=== PATIENT | female | born 1990 | race African-American/Black ===

== ENCOUNTER → 2017-01-27 | Outpatient (CLI) | payer OTHER, MEDICARE, BC, MEDICAID ==
[~2017-01-27] MED LIST: ATARAX 25MG25 MG/TAB PO; ATIVAN 0.50.5 MG/TAB PO; BEANO1 TAB PO; CIPRO 250MG TA250 MG PEG; CLEOCIN HCL300 MG PO; CLOBAZAM PO; COLACE 100100 MG/CAP PEG; DDAVP; DDAVP0.1 MG PO; DEPO-PROVER150 MG/M1 IM; DILANTIN 100MG100 MG PO; DILANTIN O100 MG/4 M PEG; DILANTIN O100 MG/4 M PO; DULCOLAX S10 MG/SUPP RC; EPSOM SALT TOP; FORTICAL200 IU/ACT NS; KEPPRA SUSP100 MG/ML PEG; KEPPRA1000 MG PEG; KRISTALOSE10 GM/PACK PO; LAMICTAL; LAMICTAL 100MG100 MG PO; LAMICTAL 25MG T25 MG PO; LAMICTAL ODT50 MG PEG; LAMICTAL150 MG PO; LAMICTAL200 MG PO; LAMICTAL25 MG PO; LEXAPRO 10MG10 MG PO; LIORESAL20 MG PO; MAGIMIN-FORTE250 MG PO; MIRALAX 17GM PK1 PKT PO; MIRALAX PA17 GM/Dose PEG; MIRALAX PA17 GM/Dose PO; MIRALAX17 GM/DOSE PO; MULTIPLE VITAMI1 CAP PO; MULTIVITAMIN W/1 TA1 PEG; OMEGA 3 120 MG-1 CAP PO; PERI-COLACE 501 TAB PO; PREDNISONE20 MG PO; SALINE NASAL SP45 ML NS; SEPTRA DS 8001 TAB PO; SEROQUEL 2525 MG/TAB PO; SUPER EPA-3001000 MG PO; TAB-A-VITE W/IR1 TAB PO; TRILEPTAL150 MG PO; TRILEPTAL300 MG/5 M PO; UNABLE; VICKS VAPORUB 41 OIN TP; VIMPAT200 MG PEG; VITAMIN C500 MG PO; VITAMIN D31000 IU PO; WATER PEG; [UNRECOGNIZED DRUG - CODE] NS
== END ==
LOC: COL.RAD 09:27
DX: G80.1 Spastic diplegic cerebral palsy (principal); G40.909 Epilepsy, unspecified, not intractable, without status epilepticus; F59 Unspecified behavioral syndromes associated with physiological disturbances and physical factors; R45.4 Irritability and anger; R63.4 Abnormal weight loss
CPT/HCPCS: Q9967

== ENCOUNTER → 2017-02-02 | Outpatient (CLI) | payer OTHER, BC, MEDICARE, MEDICAID | LOC: COL.RAD 13:30 | DX: K59.00 Constipation, unspecified (principal) ==

== ENCOUNTER → 2017-02-09 | Outpatient (CLI) | payer OTHER, BC, MEDICARE, MEDICAID | LOC: COL.RAD 09:58 | DX: K59.00 Constipation, unspecified (principal); R14.0 Abdominal distension (gaseous) ==

== ENCOUNTER → 2017-02-18 | Outpatient (CLI) | payer OTHER | LOC: COL.RAD 11:00 | DX: K56.60 Unspecified intestinal obstruction (principal) ==

== ENCOUNTER 2017-02-23 14:49 | Observation (INO) | payer OTHER, BC, MEDICAID ==
[~2017-02-23 14:49] MED LIST changes: -ATARAX 25MG25 MG/TAB PO; -FORTICAL200 IU/ACT NS; -KRISTALOSE10 GM/PACK PO; -LEXAPRO 10MG10 MG PO; -LIORESAL20 MG PO; -PERI-COLACE 501 TAB PO; -SEROQUEL 2525 MG/TAB PO; -TAB-A-VITE W/IR1 TAB PO; -VITAMIN D31000 IU PO
[2017-02-23] MEDS ORDERED: TAB-A-VITE W/IR1 TAB PO (15:22)
[2017-02-23] MEDS ORDERED: LEXAPRO 10MG10 MG PO (15:23)
[2017-02-23] MEDS ORDERED: LIORESAL20 MG PO (15:23)
[2017-02-23] MEDS ORDERED: FORTICAL200 IU/ACT NS (15:23)
[2017-02-23] MEDS ORDERED: VITAMIN D31000 IU PO (15:24)
[2017-02-23] MEDS ORDERED: SEROQUEL 2525 MG/TAB PO (15:24)
[2017-02-23] MEDS ORDERED: ATARAX 25MG25 MG/TAB PO (15:24)
[2017-02-23 16:21] LABS: BASO # 0.1 (0.0-0.2); BASO % 1.2 % (0.0-2.0); EOS # 1.1 (0.0-0.7); EOS % 15.2 % (0-4.0); GRAN % 40.4 % (42.2-75.2); HEMATOCRIT 40.5 % (37.0-47.0); HEMOGLOBIN 13.6 g/dl (12.5-16.0); LYMPH # 2.5 (1.2-3.4); LYMPH % 33.2 % (20.0-51.0); MEAN CELL VOLUME 97 fl (80.0-100.0); MEAN CORPUSCULAR HEMOGLOBIN 33 pg (27.0-31.0); MEAN CORPUSCULAR HGB CONC 34 g/dl (33.0-37.0); MEAN PLATELET VOLUME 9.7 fl (7.4-10.4); MONO # 0.7 (0.1-0.6); MONO % 9.9 % (1.7-9.3); PLATELET COUNT 229 K/mm3 (130-400); RED BLOOD COUNT 4.18 M/mm3 (4.10-5.30); REDCELL DISTRIBUTION WIDTH-CV 12.1 % (11.5-14.5); WHITE BLOOD COUNT 7.5 K/mm3 (4.8-10.8)
[2017-02-23 16:31] LABS: ADJUSTED CALCIUM 8.8 mg/dL (8.4-10.2); ALBUMIN 4.4 gm/dL (3.5-5.0); BILIRUBIN,TOTAL 0.3 mg/dL (0.0-1.0); CALCIUM 9.1 mg/dL (8.4-10.2); CREATININE, serum 0.64 mg/dL (0.52-1.25); MAGNESIUM 2.4 mg/dL (1.6-2.3); POTASSIUM 4.4 mmol/L (3.4-5.0); TOTAL PROTEIN 7.7 gm/dL (6.4-8.2)
[2017-02-23 18:22] LABS: PH 6 (5-8); SQUAMOUS EPITHELIAL None Seen /hpf; URINE APPEARANCE Hazy; URINE BACTERIA None Seen /hpf; URINE BILIRUBIN Negative (NEGATIVE); URINE BLOOD Negative (NEGATIVE); URINE COLOR Yellow; URINE GLUCOSE Negative (NEGATIVE); URINE KETONE Negative (NEGATIVE); URINE RBC 0-2 /hpf; URINE UROBILINOGEN Negative (NEGATIVE); URINE WBC 0-2 /hpf
[2017-02-23 18:38] VITALS: BP 142/86; PULSE 96
[2017-02-24 04:00] VITALS: BP 153/84; PULSE 138; TEMP 98.3
[2017-02-24 06:50] VITALS: BP 118/78
[2017-02-24 07:24] LABS: BASO # 0.1 (0.0-0.2); BASO % 1.1 % (0.0-2.0); EOS # 1.1 (0.0-0.7); EOS % 15.8 % (0-4.0); GRAN # 2.9 (1.4-6.5); GRAN % 41.3 % (42.2-75.2); HEMOGLOBIN 13.9 g/dl (12.5-16.0); LYMPH # 2.4 (1.2-3.4); LYMPH % 34.5 % (20.0-51.0); MEAN CELL VOLUME 97 fl (80.0-100.0); MEAN CORPUSCULAR HEMOGLOBIN 32 pg (27.0-31.0); MEAN CORPUSCULAR HGB CONC 33 g/dl (33.0-37.0); MONO # 0.5 (0.1-0.6); PLATELET COUNT 241 K/mm3 (130-400); RED BLOOD COUNT 4.31 M/mm3 (4.10-5.30)
[2017-02-24 07:38] LABS: ADJUSTED CALCIUM 8.9 mg/dL (8.4-10.2); BILIRUBIN,TOTAL 0.5 mg/dL (0.0-1.0); CALCIUM 8.9 mg/dL (8.4-10.2); CREATININE, serum 0.53 mg/dL (0.52-1.25); MAGNESIUM 2.2 mg/dL (1.6-2.3); POTASSIUM 3.9 mmol/L (3.4-5.0); TOTAL PROTEIN 7.2 gm/dL (6.4-8.2)
[2017-02-24 11:17] VITALS: BP 90/53; PULSE 111; TEMP 97.8
[2017-02-24 16:00] VITALS: BP 153/84; PULSE 138; TEMP 98.3
[2017-02-24 18:05] VITALS: BP 153/84; PULSE 138; TEMP 98.3
[2017-02-24 20:25] VITALS: BP 132/109
[2017-02-25] MEDS ORDERED: PERI-COLACE 501 TAB PO (10:38)
[2017-02-25] MEDS ORDERED: KRISTALOSE10 GM/PACK PO (10:40)
== END 2017-02-25 13:10 | disposition home or self-care (01) ==
LOC: MEDICAL 14:49
PROVIDERS: Physician Assistant
DX: K56.7 Ileus, unspecified (principal); G80.0 Spastic quadriplegic cerebral palsy; F79 Unspecified intellectual disabilities; Q02 Microcephaly; F91.9 Conduct disorder, unspecified; L89.521 Pressure ulcer of left ankle, stage 1; G40.909 Epilepsy, unspecified, not intractable, without status epilepticus
CPT/HCPCS: 99223-AI; G0378; G0379; J1650

== ENCOUNTER → 2017-05-25 | Outpatient (CLI) | payer BC, MEDICARE, MEDICAID ==
[~2017-05-25] MED LIST changes: +ATARAX 25MG25 MG/TAB PO; +FORTICAL200 IU/ACT NS; +KRISTALOSE10 GM/PACK PO; +LEXAPRO 10MG10 MG PO; +LIORESAL20 MG PO; +PERI-COLACE 501 TAB PO; +SEROQUEL 2525 MG/TAB PO; +TAB-A-VITE W/IR1 TAB PO; +VITAMIN D31000 IU PO
== END ==
LOC: COL.RAD 09:57
DX: K59.00 Constipation, unspecified (principal)

== ENCOUNTER → 2017-09-11 | Outpatient (CLI) | payer MEDICARE, BC, MEDICAID | LOC: COL.VAS 12:20 | DX: M79.604 Pain in right leg (principal); R20.9 Unspecified disturbances of skin sensation ==

== ENCOUNTER 2017-10-02 09:20 | Emergency (ER) | payer MEDICARE, BC, MEDICAID ==
[~2017-10-02] VITALS: Wt 50.9 kg
[2017-10-02 10:36] LABS: HEMATOCRIT 41.4 % (37.0-47.0); HEMOGLOBIN 14.1 g/dl (12.5-16.0); MEAN CELL VOLUME 95 fl (80.0-100.0); MEAN CORPUSCULAR HEMOGLOBIN 33 pg (27.0-31.0); MEAN CORPUSCULAR HGB CONC 34 g/dl (33.0-37.0); PLATELET COUNT 191 K/mm3 (130-400); RED BLOOD COUNT 4.34 M/mm3 (4.10-5.30); REDCELL DISTRIBUTION WIDTH-CV 12.1 % (11.5-14.5)
[2017-10-02 10:45] LABS: BILIRUBIN,TOTAL 0.4 mg/dL (0.0-1.0); C-REACTIVE PROTEIN 3.4 mg/dL (0.0-0.9); CALCIUM 8.5 mg/dL (8.4-10.2); CREATININE, serum 0.53 mg/dL (0.52-1.25); POTASSIUM 4.1 mmol/L (3.4-5.0); TOTAL PROTEIN 7.1 gm/dL (6.4-8.2)
[2017-10-02 10:59] LABS: PROLACTIN 12.3 ng/mL (3.0-18.6)
[2017-10-02 11:12] LABS: COLLECTION METHOD CATHETER
[2017-10-02 11:23] LABS: PHENYTOIN (DILANTIN) 7.8 ug/mL (10.0-20.0)
[2017-10-02 11:29] LABS: MUCOUS Present /lpf; PH 7 (5-8); URINE APPEARANCE Cloudy; URINE BACTERIA Rare /hpf; URINE BILIRUBIN Negative (NEGATIVE); URINE BLOOD Negative (NEGATIVE); URINE COLOR Yellow; URINE GLUCOSE Negative (NEGATIVE); URINE KETONE Negative (NEGATIVE); URINE LEUKOCYTE ESTERASE Negative (NEGATIVE); URINE NITRATE Negative (NEGATIVE); URINE PROTEIN(semi-quant) 1+ (NEGATIVE); URINE UROBILINOGEN Negative (NEGATIVE)
[2017-10-02] MEDS ORDERED: RISPERDAL 0.20.25 MG PO (11:51)
[2017-10-02 12:07] LABS: BAND 13 % (0-10); LYMPHOCYTE 4 % (20.0-51.0); NEUTROPHILS 80 % (42.0-75.2)
[2017-10-02 12:08] LABS: PLATELET ESTIMATE NORMAL (NORMAL); STOMATOCYTE 1+
[2017-10-02 14:10] VITALS: BP 91/72; PULSE 115; TEMP 99
== END 2017-10-02 14:02 | disposition home or self-care (01) ==
LOC: COL.ER 09:20
PROVIDERS: Emergency Medicine
DX: G40.909 Epilepsy, unspecified, not intractable, without status epilepticus (principal); R89.2 Abnormal level of other drugs, medicaments and biological substances in specimens from other organs, systems and tissues
CPT/HCPCS: J2060; J2405; J7030; Q2009

== ENCOUNTER 2018-12-16 10:04 | Emergency (ER) | payer MEDICARE, BC, MEDICAID ==
[~2018-12-16] VITALS: Ht 165.1 cm; Wt 59.1 kg
[~2018-12-16 10:04] MED LIST changes: +RISPERDAL 0.20.25 MG PO
[2018-12-16 10:26] VITALS: BP 113/68
[2018-12-16 12:45] VITALS: PULSE 67; TEMP 96.7
== END 2018-12-16 12:45 | disposition home or self-care (01) ==
LOC: COL.ER 10:04
DX: S30.0XXA Contusion of lower back and pelvis, initial encounter (principal); G40.909 Epilepsy, unspecified, not intractable, without status epilepticus; W17.89XA Other fall from one level to another, initial encounter; Y92.129 Unspecified place in nursing home as the place of occurrence of the external cause

== ENCOUNTER → 2020-10-12 | Outpatient (CLI) | payer BC, MEDICARE, MEDICAID ==
[~2020-10-12] MED LIST changes: +COLACE 100100 MG/CAP PO; +ENULOSE10 GM/15 M PO
== END ==
LOC: COL.RAD 09:42
DX: R13.12 Dysphagia, oropharyngeal phase (principal); R60.0 Localized edema; R05 Cough

== ENCOUNTER 2020-10-30 16:48 | Emergency (ER) | payer BC, MEDICARE, MEDICAID ==
[~2020-10-30] VITALS: Ht 160 cm; Wt 45.5 kg
[~2020-10-30 16:48] MED LIST changes: -COLACE 100100 MG/CAP PO; -ENULOSE10 GM/15 M PO
[2020-10-30 17:04] VITALS: TEMP 97.3
[2020-10-30 17:47] LABS: HEMATOCRIT 42.1 % (37.0-47.0); HEMOGLOBIN 14.2 g/dl (12.5-16.0); MEAN CELL VOLUME 95 fl (80.0-100.0); MEAN CORPUSCULAR HEMOGLOBIN 32 pg (27.0-31.0); MEAN CORPUSCULAR HGB CONC 34 g/dl (33.0-37.0); PLATELET COUNT 166 K/mm3 (130-400); RED BLOOD COUNT 4.43 M/mm3 (4.10-5.30); REDCELL DISTRIBUTION WIDTH-CV 15.1 % (11.5-14.5)
[2020-10-30 18:01] LABS: ALBUMIN 3.9 gm/dL (3.5-5.0); BILIRUBIN,TOTAL 0.4 mg/dL (0.0-1.0); CREATININE, serum 0.59 (0.52-1.25); PHENYTOIN (DILANTIN) 10.1 ug/mL (10.0-20.0); POTASSIUM 3.9 mmol/L (3.4-5.0); TOTAL PROTEIN 7.9 gm/dL (6.4-8.2)
[2020-10-30 18:21] LABS: BAND 17 % (0-10); LYMPHOCYTE 6 % (20.0-51.0); NEUTROPHILS 74 % (42.0-75.2)
[2020-10-30 18:22] LABS: ANISOCYTOSIS 1+; PLATELET ESTIMATE NORMAL (NORMAL)
[2020-10-30 18:51] LABS: COLLECTION METHOD CATHETER
[2020-10-30] MEDS ORDERED: COLACE 100100 MG/CAP PO (18:57)
[2020-10-30 19:00] LABS: AMORPHOUS CRYSTAL Present /uL; MUCOUS Present /lpf; PH 7 (5-8); SQUAMOUS EPITHELIAL None Seen /hpf; URINE APPEARANCE Cloudy; URINE BACTERIA None Seen /hpf; URINE BILIRUBIN Negative (NEGATIVE); URINE BLOOD Negative (NEGATIVE); URINE COLOR Yellow; URINE GLUCOSE Negative (NEGATIVE); URINE KETONE Negative (NEGATIVE); URINE LEUKOCYTE ESTERASE Negative (NEGATIVE); URINE NITRATE Negative (NEGATIVE); URINE PROTEIN(semi-quant) Negative (NEGATIVE); URINE UROBILINOGEN Negative (NEGATIVE)
[2020-10-30] MEDS ORDERED: ENULOSE10 GM/15 M PO (19:01)
[2020-10-30 19:35] VITALS: BP 105/71; PULSE 87
== END 2020-10-30 19:35 | disposition home or self-care (01) ==
LOC: COL.ER 16:48
PROVIDERS: Physician Assistant
DX: K59.00 Constipation, unspecified (principal); G40.909 Epilepsy, unspecified, not intractable, without status epilepticus; R41.82 Altered mental status, unspecified; Z91.19 Patient's noncompliance with other medical treatment and regimen; Z88.6 Allergy status to analgesic agent
CPT/HCPCS: Q9967

== ENCOUNTER → 2020-11-06 | Outpatient (CLI) | payer BC, MEDICARE, MEDICAID ==
[~2020-11-06] MED LIST changes: +COLACE 100100 MG/CAP PO; +ENULOSE10 GM/15 M PO
== END ==
LOC: COL.RAD 13:00
DX: J84.9 Interstitial pulmonary disease, unspecified (principal); M41.84 Other forms of scoliosis, thoracic region; M43.8X4 Other specified deforming dorsopathies, thoracic region
CPT/HCPCS: Q9967

== ENCOUNTER → 2020-11-16 | Outpatient (CLI) | payer BC, MEDICARE, MEDICAID | LOC: COL.RAD 09:21 | DX: K80.20 Calculus of gallbladder without cholecystitis without obstruction (principal) ==

== ENCOUNTER 2020-11-26 06:36 | Inpatient (IN) | payer BC, MEDICARE, MEDICAID ==
[2020-11-26] VITALS (572 sets, daily range): BP systolic 68–115; BP diastolic 44–72; PULSE 65–100; TEMP 97–98.1; O2SAT 90–100
[~2020-11-26] VITALS: Ht 170.2 cm; Wt 73.9 kg
[2020-11-26 07:03] LABS: HEMOGLOBIN 15.2 g/dl (12.5-16.0); MEAN CELL VOLUME 98 fl (80.0-100.0); MEAN CORPUSCULAR HEMOGLOBIN 32 pg (27.0-31.0); MEAN CORPUSCULAR HGB CONC 33 g/dl (33.0-37.0); PLATELET COUNT 132 K/mm3 (130-400); RED BLOOD COUNT 4.69 M/mm3 (4.10-5.30); REDCELL DISTRIBUTION WIDTH-CV 16.4 % (11.5-14.5)
[2020-11-26 07:09] LABS: ALANINE AMINOTRANSFERASE 79 U/L (4-34); ALBUMIN 4.5 gm/dL (3.5-5.0); ALKALINE PHOSPHATASE 183 U/L (50-136); ANION GAP 17 mmol/L (7-16); AST,SGOT 83 U/L (15-37); BILIRUBIN,TOTAL < 0.1 mg/dL (0.0-1.0); BLOOD UREA NITROGEN 21 mg/dL (7-17); CALCIUM 10.2 mg/dL (8.4-10.2); CARBON DIOXIDE 24 mmol/L (22-30); CHLORIDE 107 mmol/L (98-107); CREATININE, serum 0.98 (0.52-1.25); GLUCOSE 77 mg/dL (74-106); POTASSIUM 3.9 mmol/L (3.4-5.0); SODIUM 148 mmol/L (137-145); TOTAL PROTEIN 9.3 gm/dL (6.4-8.2)
[2020-11-26 07:27] LABS: COLLECTION METHOD CATHETER
[2020-11-26 07:34] LABS: MUCOUS Present /lpf; PH 5 (5-8); SQUAMOUS EPITHELIAL 0-2 /hpf; URINE APPEARANCE Cloudy; URINE BACTERIA None Seen /hpf; URINE BILIRUBIN Negative (NEGATIVE); URINE BLOOD 2+ (NEGATIVE); URINE COLOR Yellow; URINE GLUCOSE Negative (NEGATIVE); URINE KETONE Trace (NEGATIVE); URINE LEUKOCYTE ESTERASE Negative (NEGATIVE); URINE NITRATE Negative (NEGATIVE); URINE PROTEIN(semi-quant) 1+ (NEGATIVE); URINE RBC >50 /hpf; URINE UROBILINOGEN Negative (NEGATIVE)
[2020-11-26 07:34] LABS: ANISOCYTOSIS 1+; BAND 35 % (0-10); LYMPHOCYTE 2 % (20.0-51.0); NEUTROPHILS 57 % (42.0-75.2); PLATELET ESTIMATE NORMAL (NORMAL)
[2020-11-26] MEDS ORDERED: MIRALAX PA17 GM/Dose PO (08:41)
--- NOTE | 2020-11-26 10:00 | NUR ---
Pt unable to answer Suicide questions
--- NOTE | 2020-11-26 10:18 | NUR ---
Pt choking on vomit upon entering room, pt turned on side, oral suctioning performed. MD Kayleen outside room and notified: pts increased labored breathing with periods of apnea and hypoxia - MD in room right away O2 increased to 10L/min while oxymask acquired - farrowing manager Carmela De Guzman,RT and housekeeper and laundry assistant notifed of pts respiratory status. MD Kayleen wishes to intubate and mechanically ventilate pt - MD Kayleen obtained consent for intubation and radial arterial line insertion. Anesthesia paged and at bedside within 5min
--- NOTE | 2020-11-26 11:16 | NUR ---
The patient is intubated. The patient is a client from [facility]. ASYA contacted Denisse from [facility] to inquire about advanced directives. Denisse reports that the patient has a letter of guardianship and conservatorship. Denisse faxed the letter and it was placed in the chart. The letter designates the patient's parents, Edwar and Favian Mercado. ASYA staffed with housekeeping and laundry team leader and she states the patient's mother, Favian is on her way from [place], [place].
[2020-11-26 11:31] LABS: ARTERIAL BLD GAS O2 SATURATION 98.3 % (92-100); ARTERIAL BLD GAS TCO2 CT 21.5; ARTERIAL BLOOD GAS BASE EXCESS -4.1 (-2-2); ARTERIAL BLOOD GAS HCO3 20.4 meq/L (22-26); ARTERIAL BLOOD GAS PCO2 35.4 mmHg (35-45); ARTERIAL BLOOD GAS pH 7.38 (7.35-7.45)
[2020-11-26 11:32] LABS: ARTERIAL BLOOD GAS PO2 132.5 mmHg (80-100)
--- NOTE | 2020-11-26 12:47 | NUR ---
First visit from the air reduction equipment operator. [place] Machine Operator talked with person who was with patient. No needs right now.
--- NOTE | 2020-11-26 13:32 | NUR ---
Vancomycin Initial Dosing Pharmacy Note Ordering provider: Roxann Beyer MD Indication/duration: PNA, 7 days Relevant comorbidities: h/o aspiration pna LABS: SCr 0.98, CrCl~71, GFR 66, WBC 18.1 Recommendation: Start Vancomcyin 1.25 gm IV x1 loading dose, then Vancomycin 1 gm IV q12h. Pharmacy will continue to closely monitor and check Vancomycin trough on 11/28/20. Loading dose: 1.25 grams Maintenance dose: 1 gram every 12 hours Trough goal: 15-20 ug/mL
--- NOTE | 2020-11-26 14:50 | NUR ---
1033: Staff present: Myself, MICHAEL De Guzman, CarmelaRT, MD Kayleen and ANASTASIYA Hernandez present. Timeout completed, all in agreement Refer to ansesthesia note for induction med administration. (1034:MD Regan and MD Vickey notified of events) Airway inserted at 1036 - color change observed - secured and noted to be 21cm at the teeth - breath sounds auscultated in all lobes at 1037 1040: MICHAEL Pires notified for PICC insertion 1043:OG tube inserted - 58cm at teeth 1230: PICC placement confirmed and now being used
--- NOTE | 2020-11-26 17:53 | NUR ---
No sedation vacation required per MD Vickey d/t recent seizure activity
[2020-11-26 20:02] LABS: ARTERIAL BLD GAS O2 SATURATION 98.4 % (92-100); ARTERIAL BLD GAS TCO2 CT 19.6; ARTERIAL BLOOD GAS BASE EXCESS -3.9 (-2-2); ARTERIAL BLOOD GAS HCO3 18.8 meq/L (22-26); ARTERIAL BLOOD GAS PCO2 27.3 mmHg (35-45); ARTERIAL BLOOD GAS pH 7.46 (7.35-7.45)
[2020-11-26 20:03] LABS: ARTERIAL BLOOD GAS PO2 131.3 mmHg (80-100)
[2020-11-26 20:49] LABS: CALCIUM 8.1 mg/dL (8.4-10.2); CREATININE, serum 0.66 (0.52-1.25); MAGNESIUM 1.9 mg/dL (1.6-2.3); PHOSPHOROUS 2.3 mg/dL (2.5-4.5); POTASSIUM 3.6 mmol/L (3.4-5.0)
--- NOTE | 2020-11-26 21:50 | NUR ---
Report received from Phillip RODRIGUEZ. Patient is vented and sedated. Vent settings are AC, Rate 16, TV 450, Peep of 5 at 40%. Sedation is fentanyl: 100; Propofol: 30. Patient is tolerating the vent well. Blood pressures are 103/51 at Levophed at 0.20.
[2020-11-27] VITALS (794 sets, daily range): BP systolic 90–138; BP diastolic 48–78; PULSE 46–69; TEMP 95.3–98.8; O2SAT 76–100
[2020-11-27 05:47] LABS: MEAN CELL VOLUME 97 fl (80.0-100.0); MEAN CORPUSCULAR HGB CONC 34 g/dl (33.0-37.0); MEAN PLATELET VOLUME 12.7 fl (7.4-10.4); PLATELET COUNT 105 K/mm3 (130-400); RED BLOOD COUNT 3.73 M/mm3 (4.10-5.30); REDCELL DISTRIBUTION WIDTH-CV 16.1 % (11.5-14.5)
[2020-11-27 05:49] LABS: HEMATOCRIT 36.2 % (37.0-47.0); HEMOGLOBIN 12.2 g/dl (12.5-16.0); MEAN CORPUSCULAR HEMOGLOBIN 33 pg (27.0-31.0)
[2020-11-27 06:00] LABS: BILIRUBIN,TOTAL 0.2 mg/dL (0.0-1.0); CALCIUM 8.7 mg/dL (8.4-10.2); CREATININE, serum 0.65 (0.52-1.25); MAGNESIUM 1.9 mg/dL (1.6-2.3); PHOSPHOROUS 2.5 mg/dL (2.5-4.5); POTASSIUM 3.3 mmol/L (3.4-5.0); TOTAL PROTEIN 6.2 gm/dL (6.4-8.2)
[2020-11-27 06:04] LABS: BAND 22 % (0-10); EOSINOPHIL 1 % (0-4); LYMPHOCYTE 25 % (20.0-51.0); NEUTROPHILS 51 % (42.0-75.2)
[2020-11-27 06:06] LABS: PLATELET ESTIMATE DECREASED (NORMAL)
[2020-11-27 06:06] LABS: ARTERIAL BLD GAS O2 SATURATION 98.8 % (92-100); ARTERIAL BLD GAS TCO2 CT 21.8; ARTERIAL BLOOD GAS BASE EXCESS -0.3 (-2-2); ARTERIAL BLOOD GAS PCO2 25.7 mmHg (35-45); ARTERIAL BLOOD GAS PO2 150.4 mmHg (80-100); ARTERIAL BLOOD GAS pH 7.53 (7.35-7.45)
[2020-11-27 06:07] LABS: ANISOCYTOSIS 1+
--- NOTE | 2020-11-27 06:12 | NUR ---
PT HAS NOT BEEN INTUBATED FOR MORE THAN 24 HOURS. PT IS ON DOCUMENTED SETTINGS OSBALDO WELL WITH NO DISTRESS NOTED AT THIS TIME
--- NOTE | 2020-11-27 07:49 | NUR ---
Decreased sedation levels per Dr. Hurd's verbal orders due to bradycardia.
--- NOTE | 2020-11-27 11:00 | NUR ---
Hospitalist notfied of patient's rectal temp of 95.3. Warm blankets placed and room temperature increased. Will see if these interventions help, of not a bear hugger can be placed.
[2020-11-27 11:06] LABS: ARTERIAL BLD GAS O2 SATURATION 98.1 % (92-100); ARTERIAL BLOOD GAS BASE EXCESS -5.9 (-2-2); ARTERIAL BLOOD GAS HCO3 17.2 meq/L (22-26); ARTERIAL BLOOD GAS PCO2 26.5 mmHg (35-45); ARTERIAL BLOOD GAS PO2 119.4 mmHg (80-100); ARTERIAL BLOOD GAS pH 7.43 (7.35-7.45)
--- NOTE | 2020-11-27 12:10 | NUR ---
Notified Dr Spears of dilanton levels. Ok to give IV phosphenytoin. Also notified Dr. Spears that head CT was performed without contrast; ok with no contrast CT at this time.
--- NOTE | 2020-11-27 18:00 | NUR ---
Updated family members multiple times throughout the shift; all questions and concerns addressed.
[2020-11-28] VITALS (586 sets, daily range): BP systolic 94–119; BP diastolic 49–61; PULSE 62–78; TEMP 97.8–98.5; O2SAT 89–100
[2020-11-28 06:12] LABS: ARTERIAL BLD GAS O2 SATURATION 98.4 % (92-100); ARTERIAL BLD GAS TCO2 CT 23.1; ARTERIAL BLOOD GAS BASE EXCESS -1.7 (-2-2); ARTERIAL BLOOD GAS HCO3 22.1 meq/L (22-26); ARTERIAL BLOOD GAS PCO2 33.5 mmHg (35-45); ARTERIAL BLOOD GAS PO2 116.4 mmHg (80-100); ARTERIAL BLOOD GAS pH 7.44 (7.35-7.45)
[2020-11-28 06:26] LABS: BASO % 0.4 % (0.0-2.0); EOS # 0.2 (0.0-0.7); EOS % 2.7 % (0-4.0); GRAN # 5.1 (1.4-6.5); GRAN % 63.4 % (42.2-75.2); LYMPH # 1.9 (1.2-3.4); LYMPH % 23.5 % (20.0-51.0); MEAN CELL VOLUME 96 fl (80.0-100.0); MEAN CORPUSCULAR HGB CONC 33 g/dl (33.0-37.0); MEAN PLATELET VOLUME 13.4 fl (7.4-10.4); MONO # 0.8 (0.1-0.6); MONO % 9.6 % (1.7-9.3); PLATELET COUNT 86 K/mm3 (130-400); RED BLOOD COUNT 3.15 M/mm3 (4.10-5.30); REDCELL DISTRIBUTION WIDTH-CV 16.5 % (11.5-14.5)
[2020-11-28 06:28] LABS: ALANINE AMINOTRANSFERASE 52 U/L (4-34); ALBUMIN 2.6 gm/dL (3.5-5.0); ALKALINE PHOSPHATASE 106 U/L (50-136); ANION GAP 5 mmol/L (7-16); AST,SGOT 54 U/L (15-37); BILIRUBIN,TOTAL < 0.1 mg/dL (0.0-1.0); BLOOD UREA NITROGEN 10 mg/dL (7-17); CALCIUM 8.1 mg/dL (8.4-10.2); CARBON DIOXIDE 25 mmol/L (22-30); CHLORIDE 110 mmol/L (98-107); CREATININE, serum 0.69 (0.52-1.25); GLUCOSE 153 mg/dL (74-106); MAGNESIUM 1.7 mg/dL (1.6-2.3); PHOSPHOROUS 3.1 mg/dL (2.5-4.5); POTASSIUM 3.7 mmol/L (3.4-5.0); SODIUM 140 mmol/L (137-145); TOTAL PROTEIN 5.5 gm/dL (6.4-8.2)
[2020-11-28 06:29] LABS: HEMATOCRIT 30.2 % (37.0-47.0); HEMOGLOBIN 10.1 g/dl (12.5-16.0); MEAN CORPUSCULAR HEMOGLOBIN 32 pg (27.0-31.0)
--- NOTE | 2020-11-28 07:00 | NUR ---
RECEIVED REPORT FROM MICHAEL CISSE. PT RESTING EASILY ON CURRENT VENT SETTINGS: TV 400, PEEP 5, FIO2 40%. FC PATENT AND DRIANING TO GRAVITY. OGT WITH TF INFUSING AT 53ML/HR, PER REPORT THAT IS GOAL. FABRICATING MACHINE OPERATOR IN PLACE. LT WRIST ART LINE NOTED. VSS. SEE GTT FLOWHSEET.
--- NOTE | 2020-11-28 08:43 | NUR ---
DR ANDREW SANDERS AT BEDSIDE FOR ASSESSMENT. DR HARDING STATES POC IS TO ATTEMPT EXTUBATION THURSDAY MORNING. DR SANDERS AWARE.
--- NOTE | 2020-11-28 11:45 | NUR ---
The patient remains intubated. ASYA staffed with the patient's nurse. Nurse reports the patient's mother, Favian will not be coming up from [place], [place] at this time. The patient tentatively extubated on Thursday, 11/30 in the morning. ASYA contacted the patient's [facility] case planner, Denisse Abel. She reports that Favian would like Rachael Smith and Alta Jesus to be the patient's visitors. ASYA discussed having [facility] staff available when the patient is extubated to ensure a familiar face is nearby. Denisse was in agreence. ASYA contacted Favian to discuss discharge. The patient is to return to [facility] with continue care from staff. Favian confirmed she would like [facility] staff Rachael and Alta as the visitors for the patient. Favian will not visit at this time. She is in agreeance with [facility] staff present morning of extubation. ASYA collaborated the above information with the patient's nurse.
--- NOTE | 2020-11-28 12:45 | NUR ---
REP FROM [facility] CAME TO ACCESS DEVICE IN PT'S LT TO HELP CONTROL SEIZURES. REP STATES IT IS ON AND WORKING PROPERLY.
--- NOTE | 2020-11-28 13:18 | NUR ---
Vancomycin Follow-up Pharmacy Note Current regimen: Vancomycin 1 gm IV q8h Vancomycin trough: 13.34 Adjustments: Will increase Vancomycin to 1.25 gm IV q8h. Pharmacy will continue to monitor and check a Vancomycin trough on 11/30/20.
--- NOTE | 2020-11-28 18:00 | NUR ---
SPOKE WITH DR HARDING ABOUT POC FOR PT. SEE NEW ORDERS.
[2020-11-28 19:42] LABS: HEMATOCRIT 28.9 % (37.0-47.0); HEMOGLOBIN 9.5 g/dl (12.5-16.0)
[2020-11-29] VITALS (546 sets, daily range): BP systolic 89–127; BP diastolic 49–72; PULSE 63–88; TEMP 97.4–99.6; O2SAT 83–100
--- NOTE | 2020-11-29 02:00 | NUR ---
I attempted to titrate the levophed down and was hoping to get it off tonight. I lowered the propofol from 20 to 15 and lowered the levophed from 0.04 to 0.03 and the patient's blood pressure droped significantly. I increased both back to the origional settings. Propofol 25 mcg/kg/min. Levophed 0.04 mcg/kg/min. Patient is now tolerating the settings well.
--- NOTE | 2020-11-29 04:00 | NUR ---
Tube feed held at 0400 for sedation vacation.
[2020-11-29 05:40] LABS: ARTERIAL BLD GAS O2 SATURATION 98.1 % (92-100); ARTERIAL BLD GAS TCO2 CT 23.9; ARTERIAL BLOOD GAS BASE EXCESS -1.4 (-2-2); ARTERIAL BLOOD GAS HCO3 22.8 meq/L (22-26); ARTERIAL BLOOD GAS PO2 110.1 mmHg (80-100); ARTERIAL BLOOD GAS pH 7.42 (7.35-7.45)
[2020-11-29 06:33] LABS: BASO % 0.2 % (0.0-2.0); EOS # 0.4 (0.0-0.7); EOS % 5.7 % (0-4.0); GRAN % 64.8 % (42.2-75.2); LYMPH # 1.1 (1.2-3.4); LYMPH % 18.5 % (20.0-51.0); MEAN CELL VOLUME 98 fl (80.0-100.0); MEAN CORPUSCULAR HGB CONC 33 g/dl (33.0-37.0); MEAN PLATELET VOLUME 13.3 fl (7.4-10.4); MONO # 0.6 (0.1-0.6); MONO % 10.5 % (1.7-9.3); PLATELET COUNT 80 K/mm3 (130-400); RED BLOOD COUNT 2.98 M/mm3 (4.10-5.30); REDCELL DISTRIBUTION WIDTH-CV 16.6 % (11.5-14.5)
[2020-11-29 06:39] LABS: HEMATOCRIT 29.1 % (37.0-47.0); HEMOGLOBIN 9.7 g/dl (12.5-16.0); MEAN CORPUSCULAR HEMOGLOBIN 33 pg (27.0-31.0)
[2020-11-29 06:45] LABS: ALANINE AMINOTRANSFERASE 40 U/L (4-34); ALBUMIN 2.6 gm/dL (3.5-5.0); ALKALINE PHOSPHATASE 103 U/L (50-136); ANION GAP 7 mmol/L (7-16); AST,SGOT 43 U/L (15-37); BILIRUBIN,TOTAL < 0.1 mg/dL (0.0-1.0); BLOOD UREA NITROGEN 11 mg/dL (7-17); CARBON DIOXIDE 25 mmol/L (22-30); CHLORIDE 107 mmol/L (98-107); CREATININE, serum 0.57 (0.52-1.25); GLUCOSE 116 mg/dL (74-106); POTASSIUM 3.7 mmol/L (3.4-5.0); SODIUM 139 mmol/L (137-145); TOTAL PROTEIN 5.7 gm/dL (6.4-8.2)
--- NOTE | 2020-11-29 07:00 | NUR ---
RECEIVED REPORT FROM MICHAEL CISSE. PT AWAKE AND LOOKING AROUND THE ROOM. PT TOLERATING CURREN VENT SETTINGS: AC, TV 380, PEEP 5, RR15, FIO2 40%. RT AT BEDSIDE TO SWITCH PT TO CPAP TRIAL SOON. FC PATENT AND DRAINING TO GRAVITY. OGT CLAMPED AT THIS TIME. CUTTER ALUMINUM SHEET IN PLACE. VSS.
[2020-11-29 07:06] LABS: MAGNESIUM 1.7 mg/dL (1.6-2.3); PHOSPHOROUS 4.5 mg/dL (2.5-4.5)
--- NOTE | 2020-11-29 07:32 | NUR ---
DR SANDERS AT BEDSIDE FOR ASSESSMENT.
--- NOTE | 2020-11-29 08:57 | NUR ---
DR HARDING AT BEDSIDE FOR ASSESSMENT AND DICUSSING POC WITH RN AND RT. PER PHYSICIAN, RESTART AC MODE AND ALL SEDATION BACK AT PREVIOUS SETTINGS AND TF BACK. SEE GTT FLOWSHEET. TF RESTARTED AT 53ML/HR.
--- NOTE | 2020-11-29 09:25 | NUR ---
DR HARDING AT BEDSIDE NOTING POX 89-92%. PHYSICIAN REQUESTS A CXR. RADIOLOGY NOTIFIED.
--- NOTE | 2020-11-29 09:30 | NUR ---
ATTEMPTED TO CONSULT DR BOYLE. NO ANSWER. WILL TRY AGAIN.
--- NOTE | 2020-11-29 09:37 | NUR ---
DR HARDING AT BEDSIDE AFTER CXR PERFORMED. PHYSICIAN STATES TO HAVE RT PULL ETT BACK 1-2 CM AND INCREASE PROPOFOL TO 30MCG NOW. SEE GTT FLOWSHEET. RT TO BEDSIDE TO PULL BACK ETT. REPOSITIONED BACK TO 21CM AT THE TEETH. OGT AT 55CM AT THE TEETH.
--- NOTE | 2020-11-29 11:52 | NUR ---
DR GREER AT BEDSIDE FOR ASSESSMENT.
--- NOTE | 2020-11-29 14:32 | NUR ---
Trousseau Consultant staffed with the patient's nurse regarding extubation. Dr. Hurd attempted extubation this day, it failed due to too many secretions and will try again over the weekend. SW attempted to contact Denisse Abel, the patient's case finisher from [facility] to provide the above information, left message.
--- NOTE | 2020-11-29 17:30 | NUR ---
PT AROUSES AND MOVES UPPER EXTREMTIES BY SELF. UNABLE TO FOLLOW COMMANDS THOUGH.
--- NOTE | 2020-11-29 23:37 | NUR ---
Received report from MICHAEL Gaitan. All medication verified and all questions answered. Patient intubated and sedated and tolerating vent. VSS. Will resume care at this time.
[2020-11-30] VITALS (715 sets, daily range): BP systolic 95–116; BP diastolic 47–78; PULSE 40–72; TEMP 96.7–98.2; O2SAT 89–100
--- NOTE | 2020-11-30 05:11 | NUR ---
Sedation vacation started. Fentanyl decreased to 2.5mls/hr and propofol decreased to 6.4mls/hr. VSS. Patient tolerating vent.
[2020-11-30 06:17] LABS: BASO % 0.5 % (0.0-2.0); EOS # 0.6 (0.0-0.7); EOS % 6.6 % (0-4.0); GRAN % 68.8 % (42.2-75.2); LYMPH # 1.2 (1.2-3.4); LYMPH % 13.9 % (20.0-51.0); MEAN CELL VOLUME 101 fl (80.0-100.0); MEAN CORPUSCULAR HGB CONC 33 g/dl (33.0-37.0); MEAN PLATELET VOLUME 12.5 fl (7.4-10.4); MONO # 0.8 (0.1-0.6); MONO % 9.6 % (1.7-9.3); PLATELET COUNT 89 K/mm3 (130-400); REDCELL DISTRIBUTION WIDTH-CV 16.8 % (11.5-14.5)
[2020-11-30 06:18] LABS: HEMATOCRIT 27.3 % (37.0-47.0); HEMOGLOBIN 8.9 g/dl (12.5-16.0); MEAN CORPUSCULAR HEMOGLOBIN 33 pg (27.0-31.0)
--- NOTE | 2020-11-30 06:37 | NUR ---
sedation vacation completed at 0638. Patient beginning to cough and fight ventilator and becoming restless.
[2020-11-30 06:42] LABS: CALCIUM 8.1 mg/dL (8.4-10.2); CREATININE, serum 0.48 (0.52-1.25); POTASSIUM 4.1 mmol/L (3.4-5.0)
--- NOTE | 2020-11-30 07:20 | NUR ---
RECEIVED REPORT FROM MICHAEL HARKINS. PT RESTING EASILY ON CURRENT VENT SETTINGS: TV 380, PEEP 8, RR 15, FIO2 50%. FC PATENT AND DRAINING TO GRAVITY. TF INFUSING IN OGT. POWER SYSTEM ENGINEER IN PLACE. SEE GTT FLOWSHEET. VSS.
--- NOTE | 2020-11-30 08:50 | NUR ---
DR HARDING AT BEDSIDE AT 835. REQUEST CXR AND ABG THIS AM. RT NOTIFIED, STATES ONE WAS DONE AND WILL BRING OVER PAPER. DR HARDING COMES BACK TO BEDSIDE AT THIS TIME AND MAKES ADJUSTMENTS TO VENT SETTINGS: TV 400, PEEP 8, RR 16, FIO2 40%. INFORMED PHYSICIAN ABOUT TF RESIDUAL HIGHER TODAY COMPARED TO YESTERDAY AND PT HAS NOT HAS A BOWEL MOVEMENT BUT STOMACH IS FIRM. ALSO INFORMED PHYSICIAN THAT THE HR DROPPED TO 49 AND RN IS DECREASING PROPOFOL AND INCREASINF FENT GTT TO HELP WITH SEDATION AND HR. DISCUSSED CHANGES IN AUDIBLE LUNG SOUNDS WITH PHYSICIAN. RADIOLOGY NOTIFIED OF CXR ORDER. THEY STATE WILL BE HERE SOON A TECH IS AVAILABLE.
--- NOTE | 2020-11-30 10:13 | NUR ---
SPOKE TO PHARMICIST ANDERSON ABOUT VANC TROUGH BEING HIGH TODAY. STATES WILL RETIME SAME DOSE ORDERED FOR NOON AND PLACE ORDER FOR VAN TROUGH REDRAW AT ANOTHER TIME.
--- NOTE | 2020-11-30 11:30 | NUR ---
DR GREER AT BEDSIDE FOR ASSESSMENT. UPDATED WHAT WAS DISCUSSED WITH DR HARDING THIS AM AND CHANGES THUS FAR HE HAS MADE. NO NEW ORDERS.
--- NOTE | 2020-11-30 17:30 | NUR ---
PT AROUSES FREQUENTLY BY SELF AND LOOKS AROUND ROOM. DOES NOT FOLLOW ANY SIMPLE COMMANDS AT THIS TIME. PT'S MOTHER CALLS AND PLACED ON SPEAKER PHONE TO TALK TO PT. PT DOES TURN HEAD AND SHRUG UP THE RT SHOULD WHERE THE PHONE IS PLACED SO SHE CAN HEAR HER MOTHER. VSS.
[2020-11-30 18:05] LABS: HEMOGLOBIN 8.8 g/dl (12.5-16.0)
--- NOTE | 2020-11-30 18:53 | NUR ---
DR SANDERS AT BEDSIDE FOR ASSESSMENT.
[2020-11-30 19:48] LABS: ARTERIAL BLD GAS TCO2 CT 24.7; ARTERIAL BLOOD GAS BASE EXCESS -1.5 (-2-2); ARTERIAL BLOOD GAS HCO3 23.5 meq/L (22-26); ARTERIAL BLOOD GAS PCO2 40.2 mmHg (35-45); ARTERIAL BLOOD GAS pH 7.38 (7.35-7.45)
--- NOTE | 2020-11-30 20:00 | NUR ---
Assessment complete. Pt is on the ventilator and tolerating it well. Pt repositioned in bed. Call light within reach.
[2020-12-01] VITALS (912 sets, daily range): BP systolic 90–105; BP diastolic 52–72; PULSE 52–103; TEMP 96.5–98.7; O2SAT 78–100
--- NOTE | 2020-12-01 00:50 | NUR ---
Pt arrived to ICU room 5 via cart with NICKY Jane RN. Pt transferred from the cart to the ICU bed with the assistance of 3. Pt oriented to room and call light system. Call light within reach.
[2020-12-01 05:23] LABS: ARTERIAL BLD GAS O2 SATURATION 95.2 % (92-100); ARTERIAL BLD GAS TCO2 CT 24.1; ARTERIAL BLOOD GAS BASE EXCESS -2.9 (-2-2); ARTERIAL BLOOD GAS HCO3 22.8 meq/L (22-26); ARTERIAL BLOOD GAS PCO2 43.2 mmHg (35-45); ARTERIAL BLOOD GAS PO2 80.3 mmHg (80-100); ARTERIAL BLOOD GAS pH 7.34 (7.35-7.45)
[2020-12-01 06:54] LABS: BASO % 0.4 % (0.0-2.0); EOS % 0.5 % (0-4.0); GRAN % 82.1 % (42.2-75.2); LYMPH # 0.7 (1.2-3.4); LYMPH % 7.6 % (20.0-51.0); MEAN CELL VOLUME 99 fl (80.0-100.0); MEAN CORPUSCULAR HGB CONC 33 g/dl (33.0-37.0); MEAN PLATELET VOLUME 12.8 fl (7.4-10.4); MONO # 0.7 (0.1-0.6); MONO % 8.3 % (1.7-9.3); PLATELET COUNT 91 K/mm3 (130-400); RED BLOOD COUNT 2.71 M/mm3 (4.10-5.30); REDCELL DISTRIBUTION WIDTH-CV 16.4 % (11.5-14.5)
[2020-12-01 06:57] LABS: CALCIUM 8.1 mg/dL (8.4-10.2); CREATININE, serum 0.37 (0.52-1.25); POTASSIUM 3.9 mmol/L (3.4-5.0)
[2020-12-01 07:08] LABS: PHENYTOIN (DILANTIN) 11.7 ug/mL (10.0-20.0)
[2020-12-01 07:21] LABS: HEMATOCRIT 26.8 % (37.0-47.0); HEMOGLOBIN 8.8 g/dl (12.5-16.0); MEAN CORPUSCULAR HEMOGLOBIN 32 pg (27.0-31.0)
--- NOTE | 2020-12-01 07:48 | NUR ---
[facility] shift report given to MCIHAEL Man.
--- NOTE | 2020-12-01 07:57 | NUR ---
Report received from MICHAEL Rose. Patient had large BM when we turned her. She was cleaned and new linens placed. Fentanyl increased d/t agitation. Will continue to monitor.
--- NOTE | 2020-12-01 10:30 | NUR ---
MOTHER, ERICKA, CALLS FOR UPDATE
--- NOTE | 2020-12-01 12:00 | NUR ---
DR. SANDERS HERE TO ROUND ON PATIENT
--- NOTE | 2020-12-01 13:00 | NUR ---
DR. HARDING CALLED REGARDING BLOODY SECRETIONS FROM ETT AND THEN TUBE FEED RESIDUALS OF 450 ML. ORDER TO HOLD TUBE FEEDS. SINCE THE BLEEDING IS MILD AND NOT LARGE AMOUNTS, HE WOULD LIKE TO BE CALLED AROUND 4-5 PM WITH UPDATE. IF BLEEDING HAS INCREASED, HE WILL PLAN ON DOING A BRONCHOSCOPY TO FURTHER INVESTIGATE CAUSE OF BLEEDING.
--- NOTE | 2020-12-01 13:50 | NUR ---
MOTHER AND FATHER OF THIS PATIENT UPDATED VIA PHONE ON THE PLAN
[2020-12-01 18:43] LABS: HEMATOCRIT 24.9 % (37.0-47.0); HEMOGLOBIN 7.9 g/dl (12.5-16.0)
--- NOTE | 2020-12-01 19:10 | NUR ---
BLOOD GLUCOSE 72. DR. HARDING CALLED FOR FURTHER DIRECTION. ORDER TO RESTART TUBE FEEDS BUT AT LOWER RATE. MICHAEL MORALES GIVEN SHIFT REPORT AND NOTIFIED OF THIS. SOCIAL MEDIA CAMPAIGN MANAGER CALLED TO GET A BOTTLE OF TUBE FEED FROM KITCHEN STORE ROOM. CARE TURNED OVER AT THIS TIME.
--- NOTE | 2020-12-01 20:00 | NUR ---
Assessment complete. Pt is on the ventilator. TF restarted at this time at original rate of 25. Pt repositioned in bed. Call light within reach.
[2020-12-02] VITALS (892 sets, daily range): BP systolic 92–123; BP diastolic 49–88; PULSE 60–101; TEMP 97.4–100.6; O2SAT 78–100
[2020-12-02 04:36] LABS: COLLECTION METHOD CATHETER
[2020-12-02 04:38] LABS: MEAN CELL VOLUME 99 fl (80.0-100.0); MEAN CORPUSCULAR HGB CONC 33 g/dl (33.0-37.0); MEAN PLATELET VOLUME 12.3 fl (7.4-10.4); PLATELET COUNT 126 K/mm3 (130-400); RED BLOOD COUNT 2.67 M/mm3 (4.10-5.30); REDCELL DISTRIBUTION WIDTH-CV 16.5 % (11.5-14.5)
[2020-12-02 04:39] LABS: HEMATOCRIT 26.4 % (37.0-47.0); HEMOGLOBIN 8.7 g/dl (12.5-16.0); MEAN CORPUSCULAR HEMOGLOBIN 33 pg (27.0-31.0)
[2020-12-02 04:42] LABS: PH 7 (5-8); SQUAMOUS EPITHELIAL 0-2 /hpf; URINE APPEARANCE Clear; URINE BACTERIA None Seen /hpf; URINE BILIRUBIN Negative (NEGATIVE); URINE BLOOD Negative (NEGATIVE); URINE COLOR Yellow; URINE GLUCOSE Negative (NEGATIVE); URINE KETONE Negative (NEGATIVE); URINE LEUKOCYTE ESTERASE Negative (NEGATIVE); URINE NITRATE Negative (NEGATIVE); URINE PROTEIN(semi-quant) Negative (NEGATIVE); URINE UROBILINOGEN Negative (NEGATIVE)
[2020-12-02 04:58] LABS: CALCIUM 8.3 mg/dL (8.4-10.2); CREATININE, serum 0.54 (0.52-1.25); POTASSIUM 3.8 mmol/L (3.4-5.0)
[2020-12-02 05:04] LABS: PHENYTOIN (DILANTIN) 11.2 ug/mL (10.0-20.0)
[2020-12-02 05:44] LABS: BAND 1 % (0-10); LYMPHOCYTE 11 % (20.0-51.0); NEUTROPHILS 80 % (42.0-75.2); OVALOCYTES 1+
[2020-12-02 05:45] LABS: ANISOCYTOSIS 1+; HYPOCHROMIA 1+; PLATELET ESTIMATE DECREASED (NORMAL)
[2020-12-02 05:46] LABS: STOMATOCYTE 1+
[2020-12-02 05:59] LABS: ARTERIAL BLD GAS O2 SATURATION 97.5 % (92-100); ARTERIAL BLD GAS TCO2 CT 24.3; ARTERIAL BLOOD GAS HCO3 23.2 meq/L (22-26); ARTERIAL BLOOD GAS PCO2 36.5 mmHg (35-45); ARTERIAL BLOOD GAS PO2 103.9 mmHg (80-100); ARTERIAL BLOOD GAS pH 7.42 (7.35-7.45)
--- NOTE | 2020-12-02 07:12 | NUR ---
Bedside shift report given to MICHAEL Man.
[2020-12-02 14:08] LABS: CLOSTRIDIUM DIFF A/B NEG; CLOSTRIDIUM DIFF A/B INTERP No C.diff present
--- NOTE | 2020-12-02 20:00 | NUR ---
Assessment complete. Pt is on the ventilator. Repositioned in bed. Call light within reach.
[2020-12-03] VITALS (717 sets, daily range): BP systolic 96–115; BP diastolic 62–83; PULSE 62–98; TEMP 96.6–98.5; O2SAT 65–100
[2020-12-03 05:10] LABS: MEAN CELL VOLUME 99 fl (80.0-100.0); MEAN CORPUSCULAR HGB CONC 33 g/dl (33.0-37.0); MEAN PLATELET VOLUME 11.7 fl (7.4-10.4); PLATELET COUNT 142 K/mm3 (130-400); RED BLOOD COUNT 2.62 M/mm3 (4.10-5.30); REDCELL DISTRIBUTION WIDTH-CV 16.2 % (11.5-14.5)
[2020-12-03 05:16] LABS: HEMATOCRIT 25.8 % (37.0-47.0); HEMOGLOBIN 8.4 g/dl (12.5-16.0); MEAN CORPUSCULAR HEMOGLOBIN 32 pg (27.0-31.0)
[2020-12-03 05:21] LABS: ALANINE AMINOTRANSFERASE 38 U/L (4-34); ALBUMIN 2.8 gm/dL (3.5-5.0); ALKALINE PHOSPHATASE 113 U/L (50-136); ANION GAP 2 mmol/L (7-16); AST,SGOT 42 U/L (15-37); BILIRUBIN,TOTAL < 0.1 mg/dL (0.0-1.0); BLOOD UREA NITROGEN 11 mg/dL (7-17); CALCIUM 8.1 mg/dL (8.4-10.2); CARBON DIOXIDE 28 mmol/L (22-30); CHLORIDE 108 mmol/L (98-107); CREATININE, serum 0.41 (0.52-1.25); GLUCOSE 127 mg/dL (74-106); MAGNESIUM 1.8 mg/dL (1.6-2.3); POTASSIUM 3.4 mmol/L (3.4-5.0); SODIUM 139 mmol/L (137-145)
[2020-12-03 05:26] LABS: ARTERIAL BLD GAS O2 SATURATION 94.2 % (92-100); ARTERIAL BLD GAS TCO2 CT 26.2; ARTERIAL BLOOD GAS HCO3 25.1 meq/L (22-26); ARTERIAL BLOOD GAS PCO2 37.7 mmHg (35-45); ARTERIAL BLOOD GAS PO2 68.9 mmHg (80-100); ARTERIAL BLOOD GAS pH 7.44 (7.35-7.45)
[2020-12-03 05:28] LABS: PRE ALBUMIN 18.9 mg/dL (17.6-36.0)
[2020-12-03 06:06] LABS: BAND 10 % (0-10); LYMPHOCYTE 24 % (20.0-51.0); NEUTROPHILS 61 % (42.0-75.2)
[2020-12-03 06:08] LABS: HYPOCHROMIA 1+; OVALOCYTES 1+
[2020-12-03 06:09] LABS: PLATELET ESTIMATE NORMAL (NORMAL)
--- NOTE | 2020-12-03 07:24 | NUR ---
Bedside shift report given to MICHAEL De Guzman.
--- NOTE | 2020-12-03 11:52 | NUR ---
Favian called for an update. She is very thankful for care and will call later today.
--- NOTE | 2020-12-03 15:11 | NUR ---
Hair Stylist staffed with Dr. Hurd regarding course of care for the patient. Dr. Hurd states he will discuss trach and peg with the family this week for a possible transition to LTACH on Thursday, 12/07. Referral faxed to Gerald with [facility]. Gerald to review the referral and visit the patient this week.
--- NOTE | 2020-12-03 18:59 | NUR ---
PT showed agitation throughout the day and moments of not tolerating the vent. Sedation medications were titrated to make PT more comfortable. PT remained afebrile for shift. Lasix 20 mg given this am with great repsonse. PT BP at times were in the 90s for systolic pressures. MAP remained well above 65. AT this time patient is resting in bed with eyes opens. PT appears to be comfortable. Bedside report given to MICHAEL Phelps. Care relinquished at this time.
--- NOTE | 2020-12-03 19:52 | NUR ---
I was told in report if the patient's blood pressure can handle it, we'd need to give another dose of Lasix 20mg around 2100, per Dr Hurd. Her blood pressure is in 110/79. I spoke to Miesha GOMEZ and she said yes, if that's the plan and the patient's blood pressure is good, then we can go ahead and give her a dose around 2100.
--- NOTE | 2020-12-03 22:39 | NUR ---
Patient was extremely agitated since the start of shift. I titrated her Versed to the max of 10. I called Miesha GOMEZ and she came to lay eyes on the patient. She called [facility] and they reccomended to start a precedex drip. I waiting for the [facility] to pickling solution maker around 2119. He verified the Precedex and I started the drip. Patient is now relaxed but easily arousable. She does have spontanous and somewhat purposeful movements. Her Versed is at 6, fentanyl at 200 and Precedex at 0.3
[2020-12-04] VITALS (817 sets, daily range): BP systolic 100–107; BP diastolic 56–78; PULSE 64–81; TEMP 97.9–98.5; O2SAT 82–100
[2020-12-04 05:20] LABS: HEMOGLOBIN 8.2 g/dl (12.5-16.0); MEAN CELL VOLUME 99 fl (80.0-100.0); MEAN CORPUSCULAR HEMOGLOBIN 32 pg (27.0-31.0); MEAN CORPUSCULAR HGB CONC 33 g/dl (33.0-37.0); MEAN PLATELET VOLUME 11.4 fl (7.4-10.4); PLATELET COUNT 171 K/mm3 (130-400); RED BLOOD COUNT 2.53 M/mm3 (4.10-5.30)
[2020-12-04 05:34] LABS: CALCIUM 7.9 mg/dL (8.4-10.2); CREATININE, serum 0.43 (0.52-1.25); POTASSIUM 3.2 mmol/L (3.4-5.0)
[2020-12-04 05:39] LABS: ANISOCYTOSIS 1+; BAND 3 % (0-10); EOSINOPHIL 4 % (0-4); HYPOCHROMIA 1+; LYMPHOCYTE 16 % (20.0-51.0); NEUTROPHILS 72 % (42.0-75.2); NUCLEATED RED BLOOD CELL 1 (0-6); PLATELET ESTIMATE NORMAL (NORMAL)
[2020-12-04 05:57] LABS: ARTERIAL BLD GAS O2 SATURATION 96.6 % (92-100); ARTERIAL BLD GAS TCO2 CT 30.6; ARTERIAL BLOOD GAS BASE EXCESS 3.1 (-2-2); ARTERIAL BLOOD GAS PCO2 51.4 mmHg (35-45); ARTERIAL BLOOD GAS PO2 91.4 mmHg (80-100); ARTERIAL BLOOD GAS pH 7.37 (7.35-7.45)
--- NOTE | 2020-12-04 07:00 | NUR ---
RECEIVED REPORT FROM MICHAEL CISSE. PT RESTING EASILY ON CURRENT VENT SETTINGS: TV00, RR 20, PEEP 10, FIO2 55%. FC PATENT AND DRAINING TO GRAVITY. COMPLIANCE ENGINEER IN PLACE. VSS. SEE GTT FLOWSHEET.
--- NOTE | 2020-12-04 08:40 | NUR ---
DR SANDERS AT BEDSIDE FOR ASSESSMENT. DR HARDING AT BEDSIDE FOR ASSESSMENT WELL. DISCUSSED POC FOR TRACH/PEG POSSIBLY TOMORROW. NOTIFIED DR HARDING ABOUT ETT CUFF MIGHT HAVE A SMALL LEAK IN IT. PHYSICIAN STATES IF THE LEAK GETS WORSE AND CANNOT WAIT TILL TRACH, THEN TO CALL ANESTHESIA TO EXCHANGE ETT. WILL CONTINUE TO MONITOR. DR HARDING MAKES ADJUSTMENTS TO VENT: TV 420.
--- NOTE | 2020-12-04 17:45 | NUR ---
PT AROUSES EASILY TO VERBAL STIMULI AND ROLLING IN ROOM. PT COUGHS AGAINST VENT BUT IS ABLE TO CALM DOWN AFTER DONE TURNING PT.
--- NOTE | 2020-12-04 19:42 | NUR ---
Report received from MICHAEL Gaitan. All medications verified and all questions answered. VSS. Will resume care of patient at this time.
[2020-12-05] VITALS (715 sets, daily range): BP systolic 104–117; BP diastolic 69–79; PULSE 45–68; TEMP 97.5–98.5; O2SAT 71–100
--- NOTE | 2020-12-05 05:10 | NUR ---
Sedation vacation not attempted. Patient restless in bed and becoming agitated with sats dropping into the high 80s and beginning to fight the vent when nurse attempting to decreased sedation medication throughout the night.
[2020-12-05 05:17] LABS: MEAN CELL VOLUME 100 fl (80.0-100.0); MEAN CORPUSCULAR HGB CONC 33 g/dl (33.0-37.0); MEAN PLATELET VOLUME 11.6 fl (7.4-10.4); PLATELET COUNT 207 K/mm3 (130-400); RED BLOOD COUNT 2.48 M/mm3 (4.10-5.30); REDCELL DISTRIBUTION WIDTH-CV 16.2 % (11.5-14.5)
[2020-12-05 05:20] LABS: HEMATOCRIT 24.8 % (37.0-47.0); HEMOGLOBIN 8.1 g/dl (12.5-16.0); MEAN CORPUSCULAR HEMOGLOBIN 33 pg (27.0-31.0)
[2020-12-05 05:33] LABS: CALCIUM 8.1 mg/dL (8.4-10.2); CREATININE, serum 0.41 (0.52-1.25); POTASSIUM 3.5 mmol/L (3.4-5.0)
[2020-12-05 05:44] LABS: ARTERIAL BLD GAS O2 SATURATION 97.9 % (92-100); ARTERIAL BLD GAS TCO2 CT 26.8; ARTERIAL BLOOD GAS BASE EXCESS 2.5 (-2-2); ARTERIAL BLOOD GAS HCO3 25.7 meq/L (22-26); ARTERIAL BLOOD GAS PCO2 34.7 mmHg (35-45); ARTERIAL BLOOD GAS PO2 112.3 mmHg (80-100); ARTERIAL BLOOD GAS pH 7.49 (7.35-7.45)
[2020-12-05 07:22] LABS: BASOPHIL 1 % (0-2); EOSINOPHIL 2 % (0-4); LYMPHOCYTE 13 % (20.0-51.0); METAMYELOCYTE 1 % (0-0); MYELOCYTE 3 % (0-0); NEUTROPHILS 75 % (42.0-75.2); PLATELET ESTIMATE NORMAL (NORMAL)
[2020-12-05 07:23] LABS: ANISOCYTOSIS 1+; HYPOCHROMIA 3+
--- NOTE | 2020-12-05 10:10 | NUR ---
ASYA faxed updates to [facility] At [phone]. Called to Confirm and left VM.
--- NOTE | 2020-12-05 11:20 | NUR ---
ASYA spoke with Gerald at [facility] about potential DC. Gerald reports that he will be in to round and gather clinical information on 12/06/2020 in the morning. Parents of patient are scheduled to be in around the morning also. Notified Dr. Martin. Plan will be to DC to [facility] potentially Thursday12/07/2020 NF.
--- NOTE | 2020-12-05 12:20 | NUR ---
PATIENT LEAVES FOR OR AT THIS TIME.
--- NOTE | 2020-12-05 13:21 | NUR ---
Millie RODRIGUEZ CM ([phone]) from the patient's insurance to assist with discharge planning. ASYA discussed the possiblity of the patient needing LTACH and that a referral was sent to [facility]. Millie confirms that [facility] is in-network.
--- NOTE | 2020-12-05 13:30 | NUR ---
PATIENT RETURNS FROM OPERATING ROOM AT THIS TIME.
--- NOTE | 2020-12-05 16:24 | NUR ---
The patient's [facility] Teacher Industrial Arts, Denisse contacted this Stock Handler Floorperson to get an update. ASYA updated Denisse.
--- NOTE | 2020-12-05 19:03 | NUR ---
REPORT GIVEN TO MICHAEL CISSE. UPDATE CALLED TO MOTHER, ERICKA.
--- NOTE | 2020-12-05 20:36 | NUR ---
I spoke to Dr De León in [facility] to the patient's PO meds, Respiradone and Lamictal. He said I can use the PEG tube to administer even with it being less than 24 hours.
[2020-12-05 21:10] LABS: ARTERIAL BLD GAS O2 SATURATION 97.5 % (92-100); ARTERIAL BLD GAS TCO2 CT 26.8; ARTERIAL BLOOD GAS BASE EXCESS 0.8 (-2-2); ARTERIAL BLOOD GAS HCO3 25.5 meq/L (22-26); ARTERIAL BLOOD GAS PCO2 41.1 mmHg (35-45); ARTERIAL BLOOD GAS PO2 100.2 mmHg (80-100); ARTERIAL BLOOD GAS pH 7.41 (7.35-7.45)
[2020-12-06] VITALS (754 sets, daily range): BP systolic 89–112; BP diastolic 39–85; PULSE 54–100; TEMP 98–99.4; O2SAT 72–100
--- NOTE | 2020-12-06 04:42 | NUR ---
Patient had a rather uneventful night. Her vitals remained stable. She was agitated in the beginning of the shift, so I upped the fentanyl. She relaxed for a little while and then began being completely agitated. She would wiggle in the bed enough to disconnect the trach from the tubing, many many many times during the night. I had to go up and down on her sedation. She is currently comfortable with Fentanyl at 200; versed at 8 and precedex at 0.8. I constantly try to ween the sedation down but she becomes agitated within minutes. She had three bowel movements during the night. She had a total of 1900 out in the mcgrath and 200 out of the peg tube.
[2020-12-06 05:38] LABS: ARTERIAL BLD GAS O2 SATURATION 97.9 % (92-100); ARTERIAL BLD GAS TCO2 CT 26.4; ARTERIAL BLOOD GAS BASE EXCESS 0.5 (-2-2); ARTERIAL BLOOD GAS HCO3 25.1 meq/L (22-26); ARTERIAL BLOOD GAS PCO2 40.4 mmHg (35-45); ARTERIAL BLOOD GAS PO2 105.4 mmHg (80-100); ARTERIAL BLOOD GAS pH 7.41 (7.35-7.45)
[2020-12-06 05:58] LABS: MEAN CELL VOLUME 101 fl (80.0-100.0); MEAN CORPUSCULAR HGB CONC 32 g/dl (33.0-37.0); MEAN PLATELET VOLUME 10.8 fl (7.4-10.4); PLATELET COUNT 229 K/mm3 (130-400); RED BLOOD COUNT 2.56 M/mm3 (4.10-5.30); REDCELL DISTRIBUTION WIDTH-CV 16.2 % (11.5-14.5)
[2020-12-06 06:02] LABS: HEMATOCRIT 25.9 % (37.0-47.0); HEMOGLOBIN 8.3 g/dl (12.5-16.0); MEAN CORPUSCULAR HEMOGLOBIN 32 pg (27.0-31.0)
[2020-12-06 06:10] LABS: CALCIUM 8.1 mg/dL (8.4-10.2); CREATININE, serum 0.34 (0.52-1.25); MAGNESIUM 1.6 mg/dL (1.6-2.3); POTASSIUM 3.4 mmol/L (3.4-5.0)
[2020-12-06 06:36] LABS: ANISOCYTOSIS 1+; BAND 3 % (0-10); EOSINOPHIL 2 % (0-4); HYPOCHROMIA 1+; LYMPHOCYTE 17 % (20.0-51.0); MYELOCYTE 5 % (0-0); NEUTROPHILS 69 % (42.0-75.2); PLATELET ESTIMATE NORMAL (NORMAL)
--- NOTE | 2020-12-06 10:00 | NUR ---
Patient agitated in bed; shaking head back and forth and pulling at restraints. Instructed per Dr. Hurd to administer 2mg IV Ativan at this time.
--- NOTE | 2020-12-06 12:35 | NUR ---
Initial visit; Parents thanked Steel Shot Header Operator for letting them know Spiritual Care is available. Steel Shot Header Operator offered God's blessings and to keep family in Steel Shot Header Operator's prayers.
--- NOTE | 2020-12-06 14:19 | NUR ---
Pilot Boat Captain attended a family meeting for the patient. Also present were the patient's parents, Dr. Hurd, and Gerald with [facility]. The patient had a trach and peg placed on Thursday, 12/05. The patient is to start tube feedings this day. The patient may be ready for discharge to LTACH on Thursday, 12/07. The patient's parents were agreeable to tranfer once the patient is ready for transition to LTACH. All questions were answered. Gerald reports that his team has submitted for authorzation to the patient's insurance . Gerald to update this SW once they have a response from the insurance. ASYA faxed updates to Gerald.
--- NOTE | 2020-12-06 14:22 | NUR ---
Ok to re-initiate tube feeds. Will notify dietary. Also updated regarding high urine output this shift. Has had a total of 2600 ml out since 0500 this morning. Hands and feet are edemetous. Hospitalist feels urine output is acceptable at this time due to return on normal kidney function. Will continue to monitor.
--- NOTE | 2020-12-06 16:38 | NUR ---
Gerald with [facility] reports that insurance has accepted the patient and they can accept on Thursday, 12/07 and would like a 10:00 am chart picker. ASYA contacted Yuly with [facility] and they can accommodate the patient's transport. Hospitalist was in agreeance. ASYA contacted the patient's mother, Favian and she was in agreeance. ASYA collaborated the above information with vat house laborer and the patient's nurse.
--- NOTE | 2020-12-06 18:13 | NUR ---
Sedation vacation not performed; on sedation patient is very restless. Thrashes head side to side attempting to sit up in bed and pulling at restraints.
--- NOTE | 2020-12-06 20:21 | NUR ---
PATIENT HAD A VISIYOR FROM HER REHAB HOME AND PATIENT REMAINED CALM, PATIENT WILL CALM SELF WHEN HER HAND IS HELD
[2020-12-07] VITALS (273 sets, daily range): BP systolic 102–125; BP diastolic 49–87; PULSE 72–126; TEMP 99.2–99.4; O2SAT 71–100
--- NOTE | 2020-12-07 00:42 | NUR ---
PATIENT IS AWAKE AND MOVES EASILY,STILL CALMS WHEN HAND IS TOUCHED, WILL BE AWAKE WITH EYES OPEN WHEN APPROACHED, NUMEROUS UNCONTROLLED MOVEMENTS WITH UPPER LIMBS, LOWER EXTREMITIES RELAXED AND FOUND TO BE CROSSED AT TIMES
[2020-12-07 05:20] LABS: BASO # 0.1 (0.0-0.2); BASO % 0.4 % (0.0-2.0); EOS # 0.5 (0.0-0.7); EOS % 3.9 % (0-4.0); GRAN # 7.7 (1.4-6.5); GRAN % 62.9 % (42.2-75.2); HEMOGLOBIN 7.9 g/dl (12.5-16.0); LYMPH # 2.8 (1.2-3.4); LYMPH % 23.1 % (20.0-51.0); MEAN CELL VOLUME 102 fl (80.0-100.0); MEAN CORPUSCULAR HEMOGLOBIN 32 pg (27.0-31.0); MEAN CORPUSCULAR HGB CONC 32 g/dl (33.0-37.0); MEAN PLATELET VOLUME 10.5 fl (7.4-10.4); MONO # 0.8 (0.1-0.6); MONO % 6.3 % (1.7-9.3); PLATELET COUNT 319 K/mm3 (130-400); RED BLOOD COUNT 2.45 M/mm3 (4.10-5.30)
[2020-12-07 05:34] LABS: CALCIUM 8.4 mg/dL (8.4-10.2); CREATININE, serum 0.47 (0.52-1.25); MAGNESIUM 1.9 mg/dL (1.6-2.3); POTASSIUM 3.5 mmol/L (3.4-5.0)
[2020-12-07 05:46] LABS: ARTERIAL BLD GAS O2 SATURATION 96.1 % (92-100); ARTERIAL BLOOD GAS BASE EXCESS 4.4 (-2-2); ARTERIAL BLOOD GAS HCO3 28.7 meq/L (22-26); ARTERIAL BLOOD GAS PCO2 42.1 mmHg (35-45); ARTERIAL BLOOD GAS pH 7.45 (7.35-7.45)
--- NOTE | 2020-12-07 06:01 | NUR ---
PT DOES NOT QUALIFY FOR WEAN TRIAL SHE IS ON TOO HIGH OF PEEP AND FI02. PT IS ON DOCUMENTED SETTINGS OSBALDO WELL WITH NO DISTRESS NOTED AT THIS TIME.
--- NOTE | 2020-12-07 06:13 | NUR ---
PATIENT HAS BECOME ALERT, COUGHIN ON TRACH, IS CALMED BY VOICE COMMANDS, AND HOLDIN OF HAND.
--- NOTE | 2020-12-07 07:00 | NUR ---
Bedside report received from night shift RN. Patient restless in bed; shaking head back and forth and pulling at restraints. Difficult to maintain in upright position. Increased sedation per protocol.
--- NOTE | 2020-12-07 08:05 | NUR ---
Dr. Hurd at bedside; made ventilator changes. Updated on overnight events and current status. No other changes made at this time.
--- NOTE | 2020-12-07 10:53 | NUR ---
EMS here to transport patient. Assisted with transition to transport vent. Tolerated well. Discharged from facility at 1056.
--- NOTE | 2020-12-07 11:09 | NUR ---
Gave report to MICHAEL Forrest at [facility].
--- NOTE | 2020-12-07 11:33 | NUR ---
The patient discharged today, 12/07 to [facility], LTACH in . Room # [address] Fitzgerald. Mainframe Programmer Analyst faxed discharge orders. [facility] arrived at approximately 10:15 am for transport. SW contacted the patient's mother, Favian when the patient left the ICU. SW contacted the patient's briefcase sewer, Denisse Abel regarding the above information and to have a staff memeber bean picker machine operator the patient's wheelchair. Denisse reports she will have a staff memeber bean picker machine operator the wheelchair and will contact this SW when she finds someone to do so. There are no additional needs at this time.
== END 2020-12-07 10:56 | DRG 4 ==
LOC: COL.ER 06:36 → ICU 07:23
PROVIDERS: Emergency Medicine; Hospitalist; Internal Medicine; Internal Medicine Pulmonary Disease; Otolaryngology; Psychiatry & Neurology Neurology; Student in an Organized Health Care Education/Training Program; ADMIT Student in an Organized Health Care Education/Training Program
PROC: 02HV33Z Insertion of Infusion Device into Superior Vena Cava, Percutaneous Approach (ICD-10-PCS; 2020-11-26)
PROC: 5A1955Z Respiratory Ventilation, Greater than 96 Consecutive Hours (ICD-10-PCS; 2020-11-27)
PROC: 0BH17EZ Insertion of Endotracheal Airway into Trachea, Via Natural or Artificial Opening (ICD-10-PCS; 2020-11-27)
PROC: 0DH63UZ Insertion of Feeding Device into Stomach, Percutaneous Approach (ICD-10-PCS; 2020-12-05)
PROC: 0B110F4 Bypass Trachea to Cutaneous with Tracheostomy Device, Open Approach (ICD-10-PCS; principal; 2020-12-05 11:00)
DX: G40.901 Epilepsy, unspecified, not intractable, with status epilepticus (principal); A41.9 Sepsis, unspecified organism; G93.41 Metabolic encephalopathy; J96.01 Acute respiratory failure with hypoxia; J69.0 Pneumonitis due to inhalation of food and vomit; G80.0 Spastic quadriplegic cerebral palsy; R04.2 Hemoptysis; E87.1 Hypo-osmolality and hyponatremia; E87.0 Hyperosmolality and hypernatremia; D69.6 Thrombocytopenia, unspecified; E87.6 Hypokalemia; R94.5 Abnormal results of liver function studies; R00.1 Bradycardia, unspecified; I95.2 Hypotension due to drugs; T41.295A Adverse effect of other general anesthetics, initial encounter; T40.415A Adverse effect of fentanyl or fentanyl analogs, initial encounter; Z88.6 Allergy status to analgesic agent
CPT/HCPCS: 99223-AI; 99231-AI; 99232-AI; 99233-AI; 99239; A4314; C1751; J0295; J0330; J0692; J1650; J1720; J1940; J1953; J2060; J2250; J2370; J2543; J2704; J2920; J3010; J3370; J3475; J3480; J7030; J7040; J7050; J7060; J7120; Q2009

== ENCOUNTER 2021-04-15 13:33 | Emergency (ER) | payer BC, MEDICARE ==
[2021-04-15 15:50] LABS: COLLECTION METHOD CATHETER
[2021-04-15 16:04] LABS: PH 6 (5-8); SQUAMOUS EPITHELIAL None Seen /hpf; URINE APPEARANCE Clear; URINE BACTERIA None Seen /hpf; URINE BILIRUBIN Negative (NEGATIVE); URINE BLOOD Negative (NEGATIVE); URINE COLOR Yellow; URINE GLUCOSE Negative (NEGATIVE); URINE KETONE Trace (NEGATIVE); URINE LEUKOCYTE ESTERASE Negative (NEGATIVE); URINE NITRATE Negative (NEGATIVE); URINE PROTEIN(semi-quant) Negative (NEGATIVE); URINE RBC 0-2 /hpf; URINE UROBILINOGEN Negative (NEGATIVE)
[2021-04-15 16:47] LABS: BASO % 0.3 % (0.0-2.0); EOS # 0.1 (0.0-0.7); GRAN # 3.9 (1.4-6.5); GRAN % 56.9 % (42.2-75.2); HEMATOCRIT 44.5 % (37.0-47.0); HEMOGLOBIN 15.1 g/dl (12.5-16.0); LYMPH # 2.1 (1.2-3.4); LYMPH % 30.8 % (20.0-51.0); MEAN CELL VOLUME 91 fl (80.0-100.0); MEAN CORPUSCULAR HEMOGLOBIN 31 pg (27.0-31.0); MEAN CORPUSCULAR HGB CONC 34 g/dl (33.0-37.0); MEAN PLATELET VOLUME 11.1 fl (7.4-10.4); MONO # 0.7 (0.1-0.6); MONO % 10.7 % (1.7-9.3); PLATELET COUNT 211 K/mm3 (130-400); RED BLOOD COUNT 4.87 M/mm3 (4.10-5.30); REDCELL DISTRIBUTION WIDTH-CV 14.1 % (11.5-14.5)
[2021-04-15 16:55] LABS: ALANINE AMINOTRANSFERASE 21 U/L (4-34); ALBUMIN 4.3 gm/dL (3.5-5.0); ALKALINE PHOSPHATASE 203 U/L (50-136); ANION GAP 9 mmol/L (7-16); AST,SGOT 38 U/L (15-37); BILIRUBIN,TOTAL 0.4 mg/dL (0.0-1.0); BLOOD UREA NITROGEN 10 mg/dL (7-17); CALCIUM 9.6 mg/dL (8.4-10.2); CARBON DIOXIDE 26 mmol/L (22-30); CHLORIDE 105 mmol/L (98-107); CREATINE KINASE 621 U/L (30-135); CREATININE, serum 0.68 (0.52-1.25); GLUCOSE 83 mg/dL (74-106); POTASSIUM 3.8 mmol/L (3.4-5.0); SODIUM 139 mmol/L (137-145); TOTAL PROTEIN 8.5 gm/dL (6.4-8.2)
[2021-04-15 17:22] LABS: TROPONIN-I < 0.012 ng/mL (0.000-0.035)
[2021-04-15 19:26] VITALS: BP 123/87; PULSE 51; TEMP 98.6
== END 2021-04-15 19:26 | disposition home or self-care (01) ==
LOC: COL.ER 13:33
PROVIDERS: Personal Emergency Response Attendant; Physician Assistant
DX: R41.82 Altered mental status, unspecified (principal); G40.909 Epilepsy, unspecified, not intractable, without status epilepticus; Z79.899 Other long term (current) drug therapy
CPT/HCPCS: J7030

== ENCOUNTER 2021-07-22 12:19 | Emergency (ER) | payer BC, MEDICARE ==
[~2021-07-22] VITALS: Ht 160 cm; Wt 68.2 kg
[2021-07-22 14:25] LABS: BASO % 0.3 % (0.0-2.0); EOS # 0.1 K/mm3 (0.0-0.7); EOS % 0.7 % (0-4.0); GRAN # 7.5 K/mm3 (1.4-6.5); GRAN % 76.6 % (42.2-75.2); HEMATOCRIT 41.2 % (37.0-47.0); HEMOGLOBIN 13.5 g/dl (12.5-16.0); LYMPH # 1.4 K/mm3 (1.2-3.4); LYMPH % 14.3 % (20.0-51.0); MEAN CELL VOLUME 97 fl (80.0-100.0); MEAN CORPUSCULAR HEMOGLOBIN 32 pg (27.0-31.0); MEAN CORPUSCULAR HGB CONC 33 g/dl (33.0-37.0); MEAN PLATELET VOLUME 13.5 fl (7.4-10.4); MONO # 0.8 K/mm3 (0.1-0.6); MONO % 7.9 % (1.7-9.3); PLATELET COUNT 102 K/mm3 (130-400); RED BLOOD COUNT 4.27 M/mm3 (4.10-5.30); REDCELL DISTRIBUTION WIDTH-CV 15.7 % (11.5-14.5)
[2021-07-22] MEDS ORDERED: AMOXICILLI250 MG/51 PEG (16:16)
[2021-07-22 16:20] LABS: BILIRUBIN,TOTAL 0.2 mg/dL (0.2-1.2); CALCIUM 9.6 mg/dL (8.4-10.2); CREATININE, serum 0.63 mg/dL (0.57-1.11); POTASSIUM 5.1 mmol/L (3.5-4.5); TOTAL PROTEIN 7.5 gm/dL (6.2-8.1)
[2021-07-22 16:25] VITALS: BP 122/64; PULSE 74; TEMP 97
[2021-07-22 16:42] LABS: ALBUMIN 3.2 gm/dL (3.5-5.0)
== END 2021-07-22 16:50 | disposition home or self-care (01) ==
LOC: COL.ER 12:19
PROVIDERS: Personal Emergency Response Attendant
DX: J40 Bronchitis, not specified as acute or chronic (principal); E86.0 Dehydration; R19.7 Diarrhea, unspecified; G80.9 Cerebral palsy, unspecified
CPT/HCPCS: J0696; J7030

== ENCOUNTER 2021-07-29 15:13 | Emergency (ER) | payer BC, MEDICARE, MEDICAID ==
[~2021-07-29] VITALS: Ht 154.9 cm; Wt 69.5 kg
[~2021-07-29 15:13] MED LIST changes: +AMOXICILLI250 MG/51 PEG
[2021-07-29 15:28] LABS: BASO # 0.1 K/mm3 (0.0-0.2); BASO % 0.4 % (0.0-2.0); EOS # 0.1 K/mm3 (0.0-0.7); EOS % 0.7 % (0-4.0); GRAN # 7.9 K/mm3 (1.4-6.5); GRAN % 61.2 % (42.2-75.2); HEMATOCRIT 44.6 % (37.0-47.0); HEMOGLOBIN 14.4 g/dl (12.5-16.0); LYMPH % 30.8 % (20.0-51.0); MEAN CELL VOLUME 98 fl (80.0-100.0); MEAN CORPUSCULAR HEMOGLOBIN 32 pg (27.0-31.0); MEAN CORPUSCULAR HGB CONC 32 g/dl (33.0-37.0); MEAN PLATELET VOLUME 13.1 fl (7.4-10.4); MONO # 0.8 K/mm3 (0.1-0.6); MONO % 6.3 % (1.7-9.3); PLATELET COUNT 94 K/mm3 (130-400); RED BLOOD COUNT 4.54 M/mm3 (4.10-5.30); REDCELL DISTRIBUTION WIDTH-CV 15.9 % (11.5-14.5)
[2021-07-29 15:49] LABS: ALBUMIN 3.7 gm/dL (3.5-5.0); BILIRUBIN,TOTAL 0.2 mg/dL (0.2-1.2); CALCIUM 10.4 mg/dL (8.4-10.2); CREATININE, serum 0.87 mg/dL (0.57-1.11); POTASSIUM 4.1 mmol/L (3.5-4.5); TOTAL PROTEIN 8.7 gm/dL (6.2-8.1)
--- NOTE | 2021-07-29 15:50 | NUR ---
ASYA responded to consult. The patient presented to the ED from [facility]. The patient's Guardianship and Conservatorship are in EMR. Her guardians are her parents: Edwar ([phone]) and Favian Guzman (ph#[phone]). ASYA contacted the patient's RN, Francisca, at [facility] to follow up. Francisca reports that the patient's father is on his way to the hospital and lives about 45 minutes out. Francisca reports that the patient's family lives in [place], but that they also have a farm in [place] and that that is where the father is coming from. ASYA attempted to contact Edwar. Edwar did not answer. ASYA then contacted the patient's mother, Favian. Favian confirms that Edwar is on his way up to the hospital. Favian reports that the patient is a full code. ASYA notified the clinical team and Cleaner And Polisher.
[2021-07-29 16:09] LABS: PROLACTIN 84.9 ng/mL (5.18-26.53)
[2021-07-29 16:41] LABS: COLLECTION METHOD CATHETER
[2021-07-29 16:53] LABS: PH 7 (5-8); SQUAMOUS EPITHELIAL None Seen /hpf (0-10); URINE APPEARANCE Hazy (CLEAR/HAZY); URINE BACTERIA None Seen (NONE SEEN); URINE BILIRUBIN Negative (NEGATIVE); URINE BLOOD Negative (NEGATIVE); URINE COLOR Yellow (YELLOW); URINE GLUCOSE Negative (NEGATIVE); URINE KETONE Negative (NEGATIVE); URINE LEUKOCYTE ESTERASE Negative (NEGATIVE); URINE NITRATE Negative (NEGATIVE); URINE PROTEIN(semi-quant) Negative (NEGATIVE); URINE RBC 0-2 /hpf (0-2); URINE UROBILINOGEN Negative (NEGATIVE)
[2021-07-29 20:35] VITALS: BP 117/71; PULSE 88
== END 2021-07-29 20:45 | disposition short-term general hospital (02) ==
LOC: COL.ER 15:13
PROVIDERS: Emergency Medicine
DX: G40.901 Epilepsy, unspecified, not intractable, with status epilepticus (principal); Z20.822 Contact with and (suspected) exposure to COVID-19; Z86.69 Personal history of other diseases of the nervous system and sense organs; Z79.899 Other long term (current) drug therapy
CPT/HCPCS: A4314; J0330; J0692; J1953; J2060; J2250; J3010; J7030